=== PATIENT | female | born 1985 | race Caucasian/White ===

== ENCOUNTER → 2017-03-08 | Outpatient (CLI) | payer MEDICAID, SELFPAY ==
--- NOTE | 2017-03-08 10:38 | REP ---
Left shoulder three views: There is a nondisplaced fracture at the base of the humeral tuberosities. There is no dislocation. Mineralization is normal. The acromioclavicular glenohumeral articulations are unremarkable. Impression: Nondisplaced fracture at the base of the humeral tuberosities. Signed by Elgin Jang MD 03/08/2017 10:28 A
== END ==
LOC: M LRY 09:52
PROVIDERS: ATTEND Nurse Practitioner Family
DX: S42.255A Nondisplaced fracture of greater tuberosity of left humerus, initial encounter for closed fracture (principal); W06.XXXA Fall from bed, initial encounter; Y92.9 Unspecified place or not applicable; Y93.K9 Activity, other involving animal care; Y99.8 Other external cause status

== ENCOUNTER → 2020-04-21 | Outpatient (CLI) | payer SELFPAY | LOC: M LABSMTC 13:39 | PROVIDERS: ATTEND Pediatrics | DX: Z20.828 Contact with and (suspected) exposure to other viral communicable diseases (principal) ==

== ENCOUNTER → 2021-10-29 | Outpatient (CLI) | payer MEDICAID | LOC: M RAD 15:46 | PROVIDERS: ATTEND Physician Assistant Medical | DX: Z32.01 Encounter for pregnancy test, result positive (principal) ==

== ENCOUNTER → 2024-06-12 | Outpatient (CLI) | payer MEDICAID | LOC: M OUTALCOH 08:55 | PROVIDERS: ATTEND Psychiatry & Neurology Psychiatry | DX: Z03.89 Encounter for observation for other suspected diseases and conditions ruled out (principal); F17.200 Nicotine dependence, unspecified, uncomplicated ==

== ENCOUNTER 2024-06-14 08:52 | Outpatient (RCR) | payer MEDICARE, OTHER | END 2024-07-06 | LOC: M OUTALCOH 08:52 | PROVIDERS: ATTEND Psychiatry & Neurology Psychiatry | DX: Z03.89 Encounter for observation for other suspected diseases and conditions ruled out (principal); F17.200 Nicotine dependence, unspecified, uncomplicated ==